=== PATIENT | male | born 1995 | race African-American/Black ===

== ENCOUNTER 2016-08-28 20:52 | Emergency (ER) | payer OTHER ==
[~2016-08-28] VITALS: Ht 175.3 cm; Wt 81.7 kg
[~2016-08-28 20:52] MED LIST: BACITRACIN 500U30 G1 TOP; CLARITIN10 MG PO; KEFLEX500 MG PO; MOTRIN IB200 M1 PO; NOHOMEMEDICATIONS; PREDNISONE50 MG PO; VENTOLIN HFA 1818 GM INH
[2016-08-28] MEDS ORDERED: NAPROSYN500 MG PO (22:21)
[2016-08-28] MEDS ORDERED: ULTRAM 50MG TAB50 MG PO (22:21)
== END 2016-08-28 22:55 | disposition home or self-care (01) ==
LOC: ER 20:52
DX: K02.9 Dental caries, unspecified (principal); Z88.5 Allergy status to narcotic agent; F15.90 Other stimulant use, unspecified, uncomplicated

== ENCOUNTER 2017-09-03 13:12 | Emergency (ER) | payer OTHER ==
[~2017-09-03] VITALS: Ht 175.3 cm; Wt 116.6 kg
[~2017-09-03 13:12] MED LIST changes: +NAPROSYN500 MG PO; +NORFLEX100 MG PO; +ULTRAM 50MG TAB50 MG PO
[2017-09-03] MEDS ORDERED: ACYCLOVIR 400400 MG PO (13:58)
[2017-09-03 14:07] LABS: URINE BILIRUBIN NEGATIVE (Negative); URINE BLOOD NEGATIVE (Negative); URINE CLARITY CLEAR; URINE COLOR YELLOW; URINE GLUCOSE-RANDOM* NEGATIVE (Negative); URINE KETONES NEGATIVE (Negative); URINE LEUKOCYTES NEGATIVE (Negative); URINE NITRITE NEGATIVE (Negative); URINE PROTEIN (DIPSTICK) NEGATIVE (Negative); URINE SPECIFIC GRAVITY 1.025 (1.005-1.035); URINE UROBILINOGEN 0.2 E.U./dl (0.2-1.0)
== END 2017-09-03 14:18 | disposition home or self-care (01) ==
LOC: ER 13:12
PROVIDERS: Nurse Practitioner Family
DX: A60.01 Herpesviral infection of penis (principal); Z88.5 Allergy status to narcotic agent

== ENCOUNTER 2021-06-13 14:46 | Emergency (ER) | payer OTHER ==
[~2021-06-13] VITALS: Ht 180.3 cm; Wt 113.4 kg
[~2021-06-13 14:46] MED LIST changes: +ACYCLOVIR 400400 MG PO
[2021-06-13 15:19] VITALS: BP 116/53
== END 2021-06-13 22:58 | disposition left against medical advice (07) ==
LOC: ER 14:46
DX: R68.84 Jaw pain (principal); Z88.5 Allergy status to narcotic agent; Z53.21 Procedure and treatment not carried out due to patient leaving prior to being seen by health care provider

== ENCOUNTER 2021-06-28 17:41 | Emergency (ER) | payer OTHER ==
[~2021-06-28] VITALS: Ht 180.3 cm; Wt 113.4 kg
[2021-06-28 19:42] VITALS: BP 122/62
== END 2021-06-28 19:25 | disposition home or self-care (01) ==
LOC: ER 17:41
DX: F07.81 Postconcussional syndrome (principal); Z88.5 Allergy status to narcotic agent; V89.2XXA Person injured in unspecified motor-vehicle accident, traffic, initial encounter; Y93.89 Activity, other specified; Y92.89 Other specified places as the place of occurrence of the external cause; Y99.8 Other external cause status

== ENCOUNTER → 2021-07-19 | Emergency (ER) | payer OTHER ==
[~2021-07-19] VITALS: Ht 180.3 cm; Wt 115.7 kg
[2021-07-20 00:21] VITALS: BP 125/88
== END ==
LOC: ER 23:45
DX: R51.9 Headache, unspecified (principal); Z88.5 Allergy status to narcotic agent

== ENCOUNTER 2021-08-02 06:59 | Emergency (ER) | payer OTHER ==
[~2021-08-02] VITALS: Ht 180.3 cm; Wt 113.0 kg
[2021-08-02] MEDS ORDERED: ZOFRAN ODT4 MG PO (08:16)
[2021-08-02 08:42] VITALS: BP 133/69
== END 2021-08-02 08:42 | disposition home or self-care (01) ==
LOC: ER 06:59
DX: F07.81 Postconcussional syndrome (principal); Z88.5 Allergy status to narcotic agent